=== PATIENT | male | born 1960 | race African-American/Black ===

== ENCOUNTER 2023-07-04 14:16 | Emergency (ER) | payer BC, MEDICAID ==
[~2023-07-04] VITALS: Ht 177.8 cm; Wt 114.0 kg
[2023-07-04 14:18] VITALS: O2SAT 100
[2023-07-04] MEDS ORDERED: MORPHINE SULFATE 4 MG/ML CPJ (NOT FOR IM USE) IV STA (15:19)
[2023-07-04] MEDS ORDERED: ONDANSETRON HCL 4MG/2ML INJ IV STA (15:19)
[2023-07-04] MEDS ORDERED: SODIUM CHLORIDE 0.9% 1,000 ML IV ONE (15:30)
[2023-07-04 16:27] LABS: BASOPHILS % 0.7 % (0.0-2.0); EOSINOPHILS % 1.4 % (0.0-5.0); HEMATOCRIT. 46.4 % (42.0-52.0); HEMOGLOBIN. 15.2 g/dL (14.0-18.0); LYMPHOCYTES % 19.9 % (20.0-50.0); MEAN CORPUSCULAR HEMOGLOBIN 30.9 pg (28.0-32.0); MEAN CORPUSCULAR HGB CONC 32.7 g/dL (31.0-37.0); MEAN CORPUSCULAR VOLUME 94.2 fL (80.0-94.0); MEAN PLATELET VOLUME 8.1 fl (7.4-10.4); MONOCYTES % 11.7 % (2.0-8.0); NEUTROPHILS % 66.3 % (40.0-76.0); PLATELET 198 x1000/uL (130-400); RED BLOOD CELL COUNT 4.93 mill/uL (4.7-6.1); RED CELL DISTRIBUTION WIDTH 15.2 % (11.6-14.6); WHITE BLOOD COUNT 7.9 x1000/uL (4.5-11.0)
[2023-07-04 16:36] LABS: CHLORIDE 98 mEq/L (98-107); INDEX HEMOLYSI 1 (1-3); INDEX ICTERIC 1 (1-4); INDEX LIPEMIC 1 (1-3); POTASSIUM 3.5 mEq/L (3.5-5.1); SODIUM 131 mEq/L (136-145)
[2023-07-04 16:46] LABS: ALANINE AMINOTRANSFERASE 37 IU/L (13-61); ALBUMIN 4.3 g/dL (3.4-5.0); ASPARTATE AMINOTRANSFERASE 31 IU/L (15-37); BILIRUBIN TOTAL 1.3 mg/dL (0.1-1.0); CARBON DIOXIDE 22 mEq/L (21-32); CREATININE 1.2 mg/dL (0.6-1.3); GLUCOSE 100 mg/dL (70-105); NT PRO B-TYPE NATRIURETIC PEP 2017 pg/mL (5-125); TROPONIN I HIGH SENSITIVITY 63 ng/L (<78); UREA NITROGEN BLOOD 21 mg/dL (7-21)
[2023-07-04 18:21] LABS: CLARITY URINE CLEAR (CLEAR); COLOR URINE YELLOW (YELLOW); GLUCOSE URINE NEGATIVE (NEGATIVE); KETONES URINE 1+ (NEGATIVE); LEUKOCYTE ESTERASE URINE NEGATIVE (NEGATIVE); NITRITE URINE NEGATIVE (NEGATIVE); OCCULT BLOOD URINE NEGATIVE (NEGATIVE); PROTEIN URINE TRACE (NEGATIVE); SPECIFIC GRAVITY URINE 1.018 (1.005-1.030); UROBILINOGEN URINE 0.2 E.U./dL (0.2-1.0)
[2023-07-04 19:14] LABS: BACTERIA URINE 1+; RBC URINE 0-2 /hpf (0-2); SQUAMOUS EPITHELIAL CELL URINE FEW /lpf (RARE/1+); WBC URINE 0-2 /hpf (0-2)
[2023-07-04] MEDS ORDERED: MORPHINE SULFATE 4 MG/ML CPJ (NOT FOR IM USE) IV ONE (20:00)
[2023-07-04] MEDS ORDERED: FAMOTIDINE 20MG/2ML VIAL IV STA (20:44)
[2023-07-04] MEDS ORDERED: MAGNESIUM/ALUMINUM HYDROXIDE/SIMETHICONE 30ML UDC PO STA (20:44)
[2023-07-04] MEDS ORDERED: FAMO-135 MT (22:00)
[2023-07-04] MEDS ORDERED: MAG-55 MT (22:00)
[2023-07-04 22:15] VITALS: BP 103/63; PULSE 71; RESP 17; TEMP 98.6
== END 2023-07-04 22:15 | disposition home or self-care (01) ==
LOC: ER 14:16
DX: R10.9 Unspecified abdominal pain (principal); R11.2 Nausea with vomiting, unspecified; J44.9 Chronic obstructive pulmonary disease, unspecified; I10 Essential (primary) hypertension; F17.200 Nicotine dependence, unspecified, uncomplicated
CPT/HCPCS: 99285; 74176; 96374; 71045; 96375; 96361; 80053; 81003; 83880; 83690; 85025; 84484; 36415; 93005; 96376; J3490; J2405; J2270; J7030

== ENCOUNTER 2024-03-31 16:21 | Emergency (ER) | payer BC, MEDICAID ==
[~2024-03-31] VITALS: Ht 182.9 cm; Wt 90.0 kg
[~2024-03-31 16:21] MED LIST: FAMO-135 MT; MAG-55 MT
[2024-03-31 16:25] VITALS: O2SAT 100
[2024-03-31 17:00] VITALS: BP 138/80; PULSE 88; RESP 18; TEMP 98.7
[2024-03-31] MEDS ORDERED: METH-653 MT (17:26)
[2024-03-31] MEDS: ACETAMINOPHEN 500MG TABLET PO ONE (17:26)
[2024-03-31] MEDS ORDERED: LIDO700A15 TP (17:26)
[2024-03-31] MEDS ORDERED: ACET-2424 PO (17:26)
[2024-03-31] MEDS: KETOROLAC 60MG/2ML VIAL IM ONE (17:27)
[2024-03-31] MEDS ORDERED: ALBU05 IH (17:50)
== END 2024-03-31 18:20 | disposition home or self-care (01) ==
LOC: ER 16:21
DX: M62.838 Other muscle spasm (principal); J44.1 Chronic obstructive pulmonary disease with (acute) exacerbation; I10 Essential (primary) hypertension; Z88.0 Allergy status to penicillin
CPT/HCPCS: 99283; 96372; J1885

== ENCOUNTER 2024-06-23 12:05 | Emergency (ER) | payer BC, MEDICAID ==
[~2024-06-23] VITALS: Ht 172.7 cm; Wt 111.0 kg
[~2024-06-23 12:05] MED LIST changes: +ACET-2424 PO; +ALBU05 IH; +ALBU18HF2 IH; +DOXY100C5 MT; +FLUT1DIS3 INH; +LEVO-65 MT; +LIDO700A15 TP; +METH-653 MT; +P20 MT
[2024-06-23 12:12] VITALS: O2SAT 99
[2024-06-23] MEDS: ONDANSETRON 4MG ODT PO STA (12:37)
[2024-06-23] MEDS: KETOROLAC 30MG/ML VIAL IM ONE (12:37)
[2024-06-23] MEDS: CLONIDINE 0.1MG TABLET PO ONE (12:41)
[2024-06-23 12:52] LABS: BASOPHILS % 0.9 % (0.0-2.0); EOSINOPHILS % 1.4 % (0.0-5.0); HEMATOCRIT. 44.2 % (42.0-52.0); HEMOGLOBIN. 14.3 g/dL (14.0-18.0); LYMPHOCYTES % 9.8 % (20.0-50.0); MEAN CORPUSCULAR HEMOGLOBIN 29.4 pg (28.0-32.0); MEAN CORPUSCULAR HGB CONC 32.4 g/dL (31.0-37.0); MEAN CORPUSCULAR VOLUME 90.7 fL (80.0-94.0); MEAN PLATELET VOLUME 9.2 fl (7.4-10.4); MONOCYTES % 5.2 % (2.0-8.0); NEUTROPHILS % 82.7 % (40.0-76.0); PLATELET 199 x1000/uL (130-400); RED BLOOD CELL COUNT 4.87 mill/uL (4.7-6.1); RED CELL DISTRIBUTION WIDTH 15.3 % (11.6-14.6); WHITE BLOOD COUNT 9.6 x1000/uL (4.5-11.0)
[2024-06-23 12:58] LABS: CHLORIDE 111 mEq/L (98-107); POTASSIUM 3.6 mEq/L (3.5-5.1); SODIUM 141 mEq/L (136-145)
[2024-06-23 12:59] LABS: CALCIUM 9.3 mg/dL (8.7-10.4); CARBON DIOXIDE 23 mEq/L (21-32)
[2024-06-23 13:03] LABS: INR 1.1; PROTHROMBIN TIME 12.4 sec (9.6-11.0)
[2024-06-23 13:04] LABS: CREATININE 1.1 mg/dL (0.6-1.3); GLUCOSE 99 mg/dL (70-105); UREA NITROGEN BLOOD 7 mg/dL (9-23)
[2024-06-23 13:49] LABS: CLARITY URINE CLOUDY (CLEAR); COLOR URINE YELLOW (YELLOW); GLUCOSE URINE NEGATIVE (NEGATIVE); KETONES URINE NEGATIVE (NEGATIVE); LEUKOCYTE ESTERASE URINE 2+ (NEGATIVE); NITRITE URINE POSITIVE (NEGATIVE); OCCULT BLOOD URINE TRACE (NEGATIVE); PH URINE 5.5 (4.5-8.0); PROTEIN URINE NEGATIVE (NEGATIVE); SPECIFIC GRAVITY URINE 1.012 (1.005-1.030); UROBILINOGEN URINE 0.2 E.U./dL (0.2-1.0)
[2024-06-23 14:06] LABS: BACTERIA URINE 4+; SQUAMOUS EPITHELIAL CELL URINE RARE /lpf (RARE/1+)
[2024-06-23 14:07] LABS: RBC URINE NONE SEEN /hpf (0-2); WBC URINE 25-50 /hpf (0-2)
[2024-06-23] MEDS: CEFTRIAXONE SODIUM 1G VIAL IM ONE (15:07)
[2024-06-23] MEDS ORDERED: LEVO-65 MT (15:27)
[2024-06-23] MEDS: CEFTRIAXONE SODIUM 500MG VIAL IM ONE (15:39)
[2024-06-23 15:45] VITALS: BP 127/85; PULSE 84; RESP 12; TEMP 98.7
== END 2024-06-23 16:00 | disposition home or self-care (01) ==
LOC: ER 12:05
DX: N45.3 Epididymo-orchitis (principal); I10 Essential (primary) hypertension; J44.1 Chronic obstructive pulmonary disease with (acute) exacerbation; Z79.899 Other long term (current) drug therapy; Z86.73 Personal history of transient ischemic attack (TIA), and cerebral infarction without residual deficits
CPT/HCPCS: 99285; 93976; 80048; 81003; 83690; 85025; 85610; 87086; 87186; 87077; 36415; 76870; 96372; J0696 ×2; J1885; Q0162